=== PATIENT | male | born 1990 | race Caucasian/White ===

== ENCOUNTER 2025-08-22 06:35 | Day surgery (SDC) | payer BC, SELFPAY ==
[2025-08-11 13:54] VITALS: BMI 27.8
[2025-08-22] VITALS (10 sets, daily range): BP systolic 117–150; BP diastolic 57–87; PULSE 52–68; RESP 11–16; TEMP 36.6; O2SAT 93–99
[2025-08-22] MEDS: ACETAMINOPHEN 325 MG TABLET 975 MG PO (06:50)
[2025-08-22] MEDS: LACTATED RINGERS 1,000 ML 42 ML IV ×2 (06:51→09:12)
--- NOTE | 2025-08-22 07:21 | PM.PREOP ---
Pre-operative Note COVID-19 COVID-19 status: Not tested Interval Note History & Physical reviewed/Exam performed by Physician: Yes Changes to H&P: No
[2025-08-22] MEDS: SCOPOLAMINE 1 PATCH TOP (07:29)
[2025-08-22] MEDS: SODIUM CHLORIDE IRRIG SOLUTION 3,000 ML, EPINEPHrine 3 MG IRR ×2 (08:15→08:16)
--- NOTE | 2025-08-22 08:41 | PM.OP.1 ---
Operative Date/Time/Diagnoses Date of procedure: 08/22/25 Time of procedure: 08:00 Pre-op diagnosis: Medial meniscus tear and osteoarthritis Post-op diagnosis: same Procedure & Clinicians Procedure: Right knee medial arthroscopic menisectomy and chondroplasty Same procedure(s) as scheduled: Yes Surgeon: Ivy Perea Assisted?: No Anesthesia Type: General Operative Notes Findings: see below Closure Type: primary Applied: none Estimated Blood Loss (mL): 5 Blood products transfused: none Tourniquet time (min): 19 Procedure in detail: KNEE ARTHROSCOPY Preoperative diagnosis: Right Medial meniscus tear and osteoarthritis Procedure performed: Right knee medial arthroscopic menisectomy and chondroplasty Postoperative diagnosis: Right knee medial meniscus tear and osteoarthritis of the knee Primary Surgeon: Ivy Perea, DO [employer]:Lucio Paul Anesthesia: General LMA EBL: 5 ml Tourniquet: ?19 minutes @ 250 mmHg Implants: None Indication For Surgery: ?See Pre-op H&P Examination Under Anesthesia: ROM equal to the contralateral side. Grade I Raheem Stable to varus and valgus stressing at 0 & 30 degrees. No mechanical sensations Diagnostic Arthroscopy: Loose bodies: None Synovium: exuberant fat pad Patella cartilage: Grade II chondromalacia? Trochlear cartilage: Grade II chondromalacia? Medial femoral condyle cartilage: Grade IV chondromalacia 5 x10 mm Medial tibial plateau cartilage: Grade IV chondromalacia 5 x 10 mm Medial meniscus: ?Degenerative tear ACL: intact PCL: intact Lateral femoral condyle cartilage: intact Lateral tibial plateau cartilage: intact Lateral meniscus: intact Procedure in Detail: The patient was met in the pre-operative hold area. Consent was verified and operative extremity was signed. The patient was brought back to the operating room. The patient was placed supine position on the operating table. A general anesthetic was administered. A well-padded tourniquet was placed on the thigh. An exam under anesthesia was performed with the above findings.? The lower extremity was then prepped and draped in the usual sterile fashion. A timeout was performed per protocol. All members of the operating team were in agreement, and we proceeded. The Esmarch was used to exsanguinate the limb and the tourniquet was inflated. An 11 blade scalpel was used to make an anterolateral arthroscopic portal. The arthroscope was introduced into the knee and the anteromedial portal was created under direct visualization using needle localization. A diagnostic arthroscopy was performed with the above-stated findings.? The meniscus was debrided and the cartilage flaps debrided. The wounds were irrigated.? The incisions were closed with Nylon sutures. ?A sterile dressing was applied. The patient was awakened and transferred to the recovery room in stable condition.? Thirty cc of 0.25% Marcaine was infiltrated at the end of the case. Postoperative Plan: Same day discharge Weightbearing as tolerated. Remove dressing in [address]aids over incision sites. Physical therapy to start after surgery. Follow up at 2 weeks for suture removal. Complications: none Post-operative Disposition: PACU
--- NOTE | 2025-08-22 08:42 | SUR.OPER ---
Supine on padded OR bed, head on pillow, arms secured on padded arm boards at <90 degrees abduction, legs uncrossed, safety belt at torso, tape over blanket over nonoperative leg, knee positioner on operative side, all position padded, anesthesia to position also
[2025-08-22] MEDS: ONDANSETRON 4 MG/2 ML INJ IV (08:52)
[2025-08-22] MEDS: hydrOXYzine 50 MG/ML INJ IM (08:53)
== END 2025-08-22 10:05 | disposition home or self-care (01) ==
PROVIDERS: Referring Provider Orthopaedic Surgery; Visit Provider Orthopaedic Surgery
PROC: (CPT 29870; principal; 2025-08-22 07:45)
DX: S83.241A Other tear of medial meniscus, current injury, right knee, initial encounter (principal); M17.11 Unilateral primary osteoarthritis, right knee; M94.261 Chondromalacia, right knee
CPT/HCPCS: 29881; J0165; J0689; J1100; J1171; J1885; J2250; J2405; J2704; J3010; J3410; J7120